=== PATIENT | female | born 1985 | race American Indian/Alaskan Native ===

== ENCOUNTER 2017-03-07 09:19 | Emergency (ER) | payer OTHER ==
[2017-03-07 09:30] VITALS: BP 121/79; PULSE 77; RESP 16; TEMP 98.9; O2SAT 98; BMI 50.8
--- NOTE | 2017-03-07 09:58 | ED PDOC ---
Arrival/HPI - General Chief Complaint: Eye Problem Time Seen by Provider: 03/07/17 09:58 Historian: Patient - History of Present Illness Narrative History of Present Illness (Text): 03/07/17 09:58 A 31 year old female, who denies any past medical history, presents to the emergency department complaining of right eye pain and redness for 6 days. Patient reports she was seen by her PMD 4 days ago and given eye drops. Patient has been compliant with medication but has seen no improvement. Patient notes mild blurriness in right eye but denies any fever, nausea, vomiting, abdominal pain, chest pain, shortness of breath or any other complaints. PMD: Dr. Dinh Time/Duration: Other (6 days) Symptom Course: Unchanged Quality: Other Context: Home Past Medical History - Provider Review Nursing Documentation Reviewed: Yes - Infectious Disease Hx of Infectious Diseases: None - Reproductive Menopause: No - Cardiac Hx Cardiac Disorders: No - Pulmonary Hx Respiratory Disorders: No - Neurological Hx Neurological Disorder: No - HEENT Hx HEENT Disorder: No - Renal Hx Renal Disorder: No - Endocrine/Metabolic Hx Endocrine Disorders: No - Hematological/Oncological Hx Blood Disorders: No - Integumentary Hx Dermatological Disorder: No - Musculoskeletal/Rheumatological Hx Musculoskeletal Disorders: No Hx Falls: No - Gastrointestinal Hx Gastrointestinal Disorders: No - Genitourinary/Gynecological Hx Genitourinary Disorders: No - Psychiatric Hx Psychophysiologic Disorder: No Hx Depression: No Hx Emotional Abuse: No Hx Physical Abuse: No Hx Substance Use: No - Surgical History Hx Section: Yes (2010) - Anesthesia Hx Anesthesia: No Hx Anesthesia Reactions: No Hx Malignant Hyperthermia: No - Suicidal Assessment Feels Threatened In Home Enviroment: No Family/Social History - Physician Review Nursing Documentation Reviewed: Yes Family/Social History: No Known Family HX Smoking Status: Light Smoker < 10 Cigarettes Daily Hx Alcohol Use: Yes Frequency of alcohol use: Socially Hx Substance Use: No Hx Substance Use Treatment: No Allergies/Home Meds Allergies/Adverse Reactions: Allergies No Known Allergies Allergy (Verified 10/07/16 17:27) Review of Systems - Physician Review All systems were reviewed & negative as marked: Yes - Review of Systems Constitutional: absent: Fevers, Night Sweats Eyes: Vision Changes (Blurry vision in right eye), Eye Pain (Right eye pain and redness) Respiratory: absent: SOB Cardiovascular: absent: Chest Pain Gastrointestinal: absent: Abdominal Pain, Nausea, Vomiting Physical Exam Vital Signs Reviewed: Yes Vital Signs Temp Pulse Resp BP Pulse Ox 03/07/17 09:29 98.9 F 77 16 121/79 98 Temperature: Afebrile Blood Pressure: Normal Pulse: Regular Respiratory Rate: Normal Appearance: Positive for: Well-Appearing, Non-Toxic, Comfortable Pain Distress: None Mental Status: Positive for: Alert and Oriented X 3 - Systems Exam Head: Present: Atraumatic, Normocephalic Pupils: Present: PERRL Extroacular Muscles: Present: EOMI Conjunctiva: Present: Other (Red, Mild discharge, Left lower abrasion in right eye) Respiratory/Chest: Present: Clear to Auscultation, Good Air Exchange. No: Respiratory Distress, Accessory Muscle Use Cardiovascular: Present: Regular Rate and Rhythm, Normal S1, S2. No: Murmurs Neurological: Present: GCS=15, CN II-XII Intact, Speech Normal Skin: Present: Warm, Dry, Normal Color. No: Rashes Psychiatric: Present: Alert, Oriented x 3, Normal Insight, Normal Concentration Medical Decision Making ED Course and Treatment: 03/07/17 09:58 Impression: A 31 year old female with right eye pain, redness and swelling. Left lower corneal abrasion in right eye on exam. Vision acuity test showed 20/25 in right eye and 20/30 in left eye. Differential Diagnosis included but are not limited to: Right eye conjunctivitis r/o abrasion Progress Notes: 03/07/17 10:13 Corneal abrasion noted. I have discussed the plan with the patient, who expresses understanding. Patient in agreement with plan to be discharged home. Patient is stable for discharge. Patient was instructed to follow up with traffic reporter Dr. Sanchez or return if symptoms worsen or new concerning symptoms arise. Patient states she will follow up with her own traffic reporter. 03/07/17 11:11 Prescription was called in to [facility] for patient to [facility], [place]. Patient is aware and thank me for calling it in. She also states she will make sure to follow up with opthamology. 03/07/17 11:14 - Scribe Statement The provider has reviewed the documentation as recorded by the Corneliusibpedro Rene Provider Scribe Attestation: All medical record entries made by the Scribe were at my direction and personally dictated by me. I have reviewed the chart and agree that the record accurately reflects my personal performance of the history, physical exam, medical decision making, and the department course for this patient. I have also personally directed, reviewed, and agree with the discharge instructions and disposition. Disposition/Present on Arrival - Present on Arrival Any Indicators Present on Arrival: No History of DVT/PE: No History of Uncontrolled Diabetes: No Urinary Catheter: No History of Decub. Ulcer: No History Surgical Site Infection Following: None - Disposition Have Diagnosis and Disposition been Completed?: Yes Diagnosis: Conjunctivitis, Corneal abrasion Disposition: HOME/ ROUTINE Disposition Time: 10:13 Condition: GOOD Discharge Instructions (ExitCare): Conjunctivitis (ED) Additional Instructions: Ms Lux, thank you for letting us take care of you today. Your provider was Dr. Billingsley You were treated for Conjunctivitis. The emergency medical care you received today was directed at your acute symptoms. If you were prescribed any medication, please fill it and take as directed. It may take several days for your symptoms to resolve. Return to the Emergency Department if your symptoms worsen, do not improve, or if you have any other problems. Please contact your doctor or call one of the physicians/clinics you have been referred to that are listed on the Patient Visit Information form that is included in your discharge packet. Bring any paperwork you were given at discharge with you along with any medications you are taking to your follow up visit. Our treatment cannot replace ongoing medical care by a primary care provider (PCP) outside of the emergency department. Thank you for allowing the [facility] team to be part of your care today. If you had an X-Ray or CT scan: A Radiologist will review the ED reading if any change in treatment is needed we will contact you. If you had a blood, urine, or wound culture: It will take several days for the results, if any change in treatment is needed we will contact you. If you had an STI test: It will take 48 hours for the results. Please call after 1 week if you have not heard back. Prescriptions: Ciprofloxacin/Dexamethasone [Ciprodex 0.3%-0.1% 7.5 Ml] 2 drop OT Q6H #1 bottle Referrals: Raymundo Dinh DO [Primary Care Provider] - Follow up with primary Emil Diaz [Staff Provider] - Follow up with primary Forms: WORK NOTE
== END 2017-03-07 10:32 | disposition home or self-care (01) ==
LOC: ED 09:19
DX: S05.01XA Injury of conjunctiva and corneal abrasion without foreign body, right eye, initial encounter (principal); X58.XXXA Exposure to other specified factors, initial encounter; Y92.9 Unspecified place or not applicable; H10.9 Unspecified conjunctivitis